=== PATIENT | female | born 1940 | race Caucasian/White ===

== ENCOUNTER 2016-05-06 10:46 | Day surgery (SDC) | payer MEDICARE ==
[~2016-05-06] VITALS: Ht 160 cm; Wt 80.0 kg
[~2016-05-06 10:46] MED LIST: LACTATED RINGERS 1,000 ML IV SCH; LEVOFLOXACIN 500 MG TAB (LEVAQUIN) PO SCH; SODIUM CHLORIDE FLUSH 3 ML SYR IV PRN
[2016-05-06 11:56] VITALS: BP 116/70
[2016-05-06] MEDS ORDERED: LEVOFLOXACIN 500 MG TAB (LEVAQUIN) PO SCH (12:00)
[2016-05-06] MEDS ORDERED: LIDOCAINE 2% (XYLOCAINE) 10 ML UROJECT MM ONE (12:46)
[2016-05-06 12:59] VITALS: BP 124/84
== END 2016-05-06 13:17 | disposition home or self-care (01) ==
LOC: ASC 10:46
PROVIDERS: ATTEND Urology
DX: Z08 Encounter for follow-up examination after completed treatment for malignant neoplasm (principal); Z85.51 Personal history of malignant neoplasm of bladder; Z85.42 Personal history of malignant neoplasm of other parts of uterus; E11.9 Type 2 diabetes mellitus without complications; Z79.82 Long term (current) use of aspirin; Z79.84 Long term (current) use of oral hypoglycemic drugs
CPT/HCPCS: 52000; 88112; A9270

== ENCOUNTER → 2016-05-22 | Outpatient (REF) | payer MEDICARE ==
[2016-05-22 12:45] LABS: BASOPHILS % (AUTO) 2 % (0-2); EOSINOPHILS # (AUTO) 0.2 10^3uL; EOSINOPHILS % (AUTO) 4 % (0-4); LYMPHOCYTES # (AUTO) 1.4 X10^3; MEAN PLATELET VOLUME 9.9 FL (6.0-9.5); MONOCYTES # (AUTO) 0.3 X10^3; MONOCYTES % (AUTO) 6 % (3-11); NEUTROPHILS # (AUTO) 3.4 X10^3; NEUTROPHILS % (AUTO) 62 % (51-67); PLATELET COUNT 438 10^3uL (150-450)
[2016-05-22 12:48] LABS: MEAN CORPUSCULAR HEMOGLOBIN 21.7 PG (26.0-34.0); MEAN CORPUSCULAR HGB CONC 27.8 g/dL (31.0-37.0); MEAN CORPUSCULAR VOLUME 78 FL (80-100)
== END ==
LOC: LAB 12:02
PROVIDERS: ATTEND Physician Assistant Medical
DX: D64.9 Anemia, unspecified (principal)
CPT/HCPCS: 85025

== ENCOUNTER → 2016-06-06 | Outpatient (REF) | payer MEDICARE ==
[2016-06-06 10:49] LABS: BASOPHILS % (AUTO) 3 % (0-2); EOSINOPHILS # (AUTO) 0.2 10^3uL; EOSINOPHILS % (AUTO) 4 % (0-4); LYMPHOCYTES # (AUTO) 1.1 X10^3; MEAN CORPUSCULAR VOLUME 84 FL (80-100); MEAN PLATELET VOLUME 9.4 FL (6.0-9.5); MONOCYTES # (AUTO) 0.4 X10^3; MONOCYTES % (AUTO) 7 % (3-11); NEUTROPHILS # (AUTO) 3.3 X10^3; NEUTROPHILS % (AUTO) 65 % (51-67); PLATELET COUNT 470 10^3uL (150-450); WHITE BLOOD COUNT 5.12 10^3uL (4.0-11.0)
[2016-06-06 11:11] LABS: MEAN CORPUSCULAR HEMOGLOBIN 24.3 PG (26.0-34.0); MEAN CORPUSCULAR HGB CONC 28.9 g/dL (31.0-37.0)
== END ==
LOC: LAB 10:39
PROVIDERS: ATTEND Physician Assistant Medical
DX: D64.9 Anemia, unspecified (principal)
CPT/HCPCS: 85025

== ENCOUNTER → 2016-06-11 | Emergency (ER) | payer MEDICARE ==
[~2016-06-11] VITALS: Ht 160 cm; Wt 80.0 kg
[2016-06-11 10:31] VITALS: BP 162/82
--- NOTE | 2016-06-11 11:05 | NUR ---
Patient was transferred from her wheelchair to ER cart with assist x2 without difficulty. Pt was position to her right side. Patient nows rates pain at 7/10.
[2016-06-11 11:46] LABS: BASOPHILS % (AUTO) 2 % (0-2); EOSINOPHILS # (AUTO) 0.2 10^3uL; EOSINOPHILS % (AUTO) 3 % (0-4); MEAN CORPUSCULAR VOLUME 84 FL (80-100); MEAN PLATELET VOLUME 9.3 FL (6.0-9.5); MONOCYTES # (AUTO) 0.4 X10^3; MONOCYTES % (AUTO) 7 % (3-11); NEUTROPHILS # (AUTO) 3.5 X10^3; NEUTROPHILS % (AUTO) 68 % (51-67); PLATELET COUNT 409 10^3uL (150-450); WHITE BLOOD COUNT 5.18 10^3uL (4.0-11.0)
--- NOTE | 2016-06-11 11:49 | NUR ---
Patient is resting Quitely with her eyes closed. Patient remains on her right side.
[2016-06-11 11:56] LABS: MEAN CORPUSCULAR HEMOGLOBIN 24.8 PG (26.0-34.0); MEAN CORPUSCULAR HGB CONC 29.5 g/dL (31.0-37.0)
[2016-06-11 12:11] LABS: ALBUMIN 3.9 g/dL (3.4-5.0); ALKALINE PHOSPHATASE 64 U/L (38-126); BUN/CREATININE RATIO 21 (10-20); TOTAL PROTEIN 6.7 g/dL (6.4-8.5)
--- NOTE | 2016-06-11 12:50 | NUR ---
Patioent repositioned back to right side after Radiology completed their visit. Head of bed is elevated to 305nper patient request. Spouse is present in the room.
--- NOTE | 2016-06-11 13:20 | NUR ---
Patient is discharged to home per physician orders. News medications were given by physician.
== END | disposition home or self-care (01) ==
LOC: ED 10:21
DX: M54.42 Lumbago with sciatica, left side (principal); M54.41 Lumbago with sciatica, right side; M54.16 Radiculopathy, lumbar region
CPT/HCPCS: 36415; 71010; 80053; 84484; 85025; 99282; 99283

== ENCOUNTER → 2016-08-06 | Emergency (ER) | payer MEDICARE ==
[~2016-08-06] VITALS: Ht 160 cm; Wt 81.0 kg
[~2016-08-06] MED LIST changes: +AC500T PO; +ACET1TAB PO; +ALEN70TA47 PO; +ALFENTANIL 500 MCG/ML (ALFENTA) 5 ML AMP IV ONE; +ASP81CT PO; +ASPI-586 PO; +ASPI-818 PO; +ASPI-860 PO; +CA C1TAB76 PO; +CHOL10002 PO; +CIPR-242 PO; +CITA40TA5 PO; +CPR500T; +CPR500T PO; +CYCL10TA45 PO; +DULO30CA PO; +DULO30CA46 PO; +FERR325T36 PO; +FNT25TD TD; +GBPN300C PO; +HCTZ12.5T PO; +HDR4T PO; +HYDR-3702 PO; +HYDR-3708 PO; +HYDR-3754 PO; +HYDR-3811 PO; +HYDR8TAB PO; +HYDROcodone/APAP 5 MG/325 MG (NORCO) TAB PO ONE; -LACTATED RINGERS 1,000 ML IV SCH; +LEVO250T11 PO; -LEVOFLOXACIN 500 MG TAB (LEVAQUIN) PO SCH; +LISI1TAB6 PO; +LSNP10T PO; +MAGN400O7 PO; +METF500T4 PO; +METF850T2 PO; +MICO30CR17 TOP; +MIDAZOLAM 2 MG/2 ML (VERSED) VIAL ONE; +MORP1CAP11 PO; +NF-LUBIP24 PO; +OMEP40CA36 PO; +ONDA-50 PO; +OXYC1TAB87 PO; +PANT40TA3 PO; +PHEN-640 PO; +POTA99TA3 PO; +PROPOFOL 20 ML IV ONE; +SMV10T PO; -SODIUM CHLORIDE FLUSH 3 ML SYR IV PRN; +SULF-228 PO; +TRM50T PO; +[UNRECOGNIZED DRUG - CODE] PO
[2016-08-06 13:29] VITALS: BP 130/51
--- NOTE | 2016-08-06 13:30 | NUR ---
Patient states she needs to urinate. Placed on bedpan, voids.
--- NOTE | 2016-08-06 14:09 | NUR ---
Patient up to bedside commode with permission from doctor.
[2016-08-06 14:33] LABS: BASOPHILS % (AUTO) 1 % (0-2); EOSINOPHILS # (AUTO) 0.3 10^3uL; EOSINOPHILS % (AUTO) 5 % (0-4); LYMPHOCYTES # (AUTO) 1.5 X10^3; MEAN CORPUSCULAR HEMOGLOBIN 29.4 PG (26.0-34.0); MEAN CORPUSCULAR VOLUME 94 FL (80-100); MONOCYTES # (AUTO) 0.5 X10^3; MONOCYTES % (AUTO) 8 % (3-11); NEUTROPHILS # (AUTO) 3.8 X10^3; NEUTROPHILS % (AUTO) 62 % (51-67); PLATELET COUNT 320 10^3uL (150-450); WHITE BLOOD COUNT 6.03 10^3uL (4.0-11.0)
--- NOTE | 2016-08-06 14:40 | NUR ---
Patient requests to use bedside commode. Voided only a few cc's.
[2016-08-06 14:46] LABS: ALKALINE PHOSPHATASE 67 U/L (38-126); ANION GAP 13.5 MEQ/L (3-15); BUN/CREATININE RATIO 25 (10-20); TOTAL PROTEIN 7.1 g/dL (6.4-8.5)
[2016-08-06 14:48] LABS: MEAN CORPUSCULAR HGB CONC 31.3 g/dL (31.0-37.0)
--- NOTE | 2016-08-06 14:50 | NUR ---
Complains of chest pain, left anterior 8/[address] Israel notified. Pain occurred directly following being placed back in bed. No changes on EKG.
--- NOTE | 2016-08-06 15:25 | NUR ---
Up to commode again. Dr. Israel notified of urinary frequency, UA order obtained.
[2016-08-06 15:33] LABS: BILIRUBIN,URINE Negative (Negative); COLOR,URINE Other; GLUCOSE, URINE (UA) Negative (Negative); LEUKOCYTE ESTERASE ,URINE Negative (Negative); UROBILINOGEN,URINE 0.2 mg/dL (0.2-1.0)
[2016-08-06 15:51] LABS: CLARITY,URINE Slightly Cloudy
[2016-08-06 15:52] LABS: RBC,URINE 0-2 /HPF; URINE CENTRIFUGED VOLUME 12 mL
== END ==
LOC: EDUNIT# 13:29 → ED 13:33
DX: R07.9 Chest pain, unspecified (principal); G89.29 Other chronic pain
CPT/HCPCS: 36415; 80053; 81003; 81015; 83880; 84484; 85025; 93005; 99285; A9270; 93010; 99284

== ENCOUNTER 2016-08-08 15:52 | Day surgery (SDC) | payer MEDICARE ==
[~2016-08-08] VITALS: Ht 157.5 cm; Wt 69.8 kg
[~2016-08-08 15:52] MED LIST changes: -ALFENTANIL 500 MCG/ML (ALFENTA) 5 ML AMP IV ONE; -ASPI-818 PO; -GBPN300C PO; -HYDROcodone/APAP 5 MG/325 MG (NORCO) TAB PO ONE; -MIDAZOLAM 2 MG/2 ML (VERSED) VIAL ONE; -OMEP40CA36 PO; -ONDA-50 PO; -PROPOFOL 20 ML IV ONE
--- OUTSIDE RECORDS SUMMARY | 2016-08-08 15:56 | XMS REPORT | Continuity of Care Document ---
Author Author [facility] Organization [facility] Address Unknown Phone Unavailable Care Team Providers Care Printer'S Assistant Name Role Phone PCP Unavailable Source Comments Some departments are not documenting in the electronic medical record. If you do not see the information that you expected, contact Release of Information in the Health Information Management department at [phone] for further assistance in locating additional records.[facility] Active Allergies and Adverse Reactions Not on File Current Medications Not on file Active Problems Not on file Most Recent Encounters Date Type Specialty Providers Description 06/11/2016 Telephone Orthopedic Surgery Bautista Gore MD Follow-up Phone Call Social History Tobacco Use Types Packs/Day Years Used Date Never Assessed Plan of Care Health Maintenance Due Date Last Done Comments Physical (Comprehensive) 1947 Exam Pertussis Vaccine 1952 Tetanus Vaccine 1958 Breast Cancer Screening 1981 Colorectal Cancer 08/25/1991 Screening Shingles Vaccine 2001 Osteoporosis Screening 2006 Prevnar/Pneumovax (#1) 2006 Influenza Vaccine 11/15/2016 Results from Last 3 Months Not on file
--- NOTE | 2016-08-08 16:00 | NUR ---
Admit to room 302 for prep for panendoscopy on 08-09-16. Came by w/c to floor. Difficulty transferring from chair to scale and from scale to bed. Rquires gait belt and 2-3 to 1 assist. Aid assisting patient with settling into bed. Patient c/o pain all over left side of body. States she has a bad rotator cuff.
[2016-08-08 16:21] VITALS: BP 144/80
--- NOTE | 2016-08-08 16:40 | NUR ---
While doing admission assessment, it was told to this creative writer that the patient last had pain medication of hydrocodone 10-325 at 1530. Patient had been complaining of severe pain and told me she had also taken aspirin. This was from her home medication which she had brought with her. said she took it at 1615. This was Gutierrez Back and Body with 500mg ASA and 32.5 mg Caffeine. Patient took [address] Pappas office notified of this and procedure is to proceed as scheduled. Phone orders for bowel prep have been received and noted. Patient medication sent to pharmacy.
[2016-08-08] MEDS ORDERED: POLYETHYLENE GLYCOL PO ONE (17:00)
[2016-08-08] MEDS ORDERED: DULO30CA PO (17:56)
[2016-08-08] MEDS ORDERED: ASPI-818 PO (17:56)
[2016-08-08] MEDS ORDERED: OMEP40CA36 PO (17:56)
[2016-08-08] MEDS ORDERED: ONDA-50 PO (17:56)
[2016-08-08] MEDS ORDERED: GBPN300C PO (17:56)
--- NOTE | 2016-08-08 18:05 | NUR ---
MED REC COMPLETED-current med list obtained from Ext Med History application, medication listing, prescription bottles, and retail pharmacy.
--- NOTE | 2016-08-08 19:00 | NUR ---
Report to night nurse. Patient has been up to commode x2 and transfers better than she did when she initially arrived to floor. Provided clear liquid supper. Bowel prep to begin at 0100 am. Patient voices understanding of plan of care for the night. has gone home for the evening.
[2016-08-08] MEDS ORDERED: NS FLUSH 3 ML PRN IV (19:45)
[2016-08-08] MEDS ORDERED: morphine INJ 2 MG/ML 1 ML SYRINGE IV PRN (19:45)
[2016-08-08] MEDS ORDERED: NS FLUSH 10 ML PRN IV (19:45)
[2016-08-08 20:00] VITALS: BP 126/81
[2016-08-08] MEDS: GABAPENTIN 300 MG (NEURONTIN) CAP PO SCH (21:29)
[2016-08-08] MEDS: HYDROcodone/APAP 5 MG/325 MG (NORCO) TAB PO PRN (21:29)
[2016-08-09] VITALS (7 sets, daily range): BP systolic 126–163; BP diastolic 78–91
[2016-08-09] MEDS ORDERED: BISACODYL 5 MG (DULCOLAX) TABLET PO SCH (01:00)
[2016-08-09] MEDS ORDERED: LACTATED RINGERS 1,000 ML IV SCH ×2 (05:00)
[2016-08-09] MEDS ORDERED: SODIUM CHLORIDE FLUSH 3 ML SYR IV PRN (05:00)
--- NOTE | 2016-08-09 05:00 | NUR ---
Bowel prep complete at this time. All 64oz of Propel finished. Patient is complaining of some general stomach upset following completion of bowel prep. will continue to monitor patient closely.
--- NOTE | 2016-08-09 06:13 | NUR ---
Patient complaining of pain rated at a 9/10 in bilateral legs r/t legs dangling while on commode. Patient requesting PRN pain medication. This RN administered PRN Morphine 2mg IV at this time. See eMAR. Will continue to monitor patient closely.
[2016-08-09] MEDS: GABAPENTIN 300 MG (NEURONTIN) CAP PO SCH ×2 (08:44→12:04)
[2016-08-09] MEDS: HYDROcodone/APAP 5 MG/325 MG (NORCO) TAB PO PRN (08:45)
[2016-08-09] MEDS ORDERED: NS FLUSH 3 ML DAILY IV SCH (09:00)
[2016-08-09] MEDS ORDERED: SIMETHICONE 40 MG/0.6 ML (MYLICON DROPS) ORAL SYRINGE ONE (10:58)
[2016-08-09] MEDS ORDERED: LIDOCAINE 4% TOPICAL 4.5 ML SYR ONE (10:58)
--- NOTE | 2016-08-09 11:33 | NUR ---
Patient to OR via bed.
[2016-08-09] MEDS ORDERED: LIDOCAINE 2% BOLUS 100 MG/5 ML (XYLOCAINE) SYRINGE ONE (12:06)
--- NOTE | 2016-08-09 14:46 | NUR ---
Patient meets criteria for discharge. Tolerating clear liquids and soft food by mouth. Denies pain or distress. Instructions provided with verbal and written understanding expressed. Dismissed via wheelchair to private car accompanied by ROUGH ROUNDER. All home medications returned. No further needs.
--- NOTE | 2016-08-09 14:46 | OPERATIVE REPORT ---
DATE OF OPERATION: 08/09/2016 PRE-OPERATIVE DIAGNOSIS: Anemia. POST-OPERATIVE DIAGNOSIS: 1. Antral ulcers. 2. Diffuse gastritis. 3. Reflux esophagitis. 4. Barnes diverticulosis. OPERATIVE PROCEDURE: 1. Esophagogastroduodenoscopy with biopsies. 2. Total colonoscopy. SURGEON: Roberto Pappas MD ANESTHESIA: Monitored anesthesia care. FINDINGS: 1. There were 2 small ulcers seen adjacent to each other along a fold in the gastric antrum. These were photographed an biopsied. There was no evidence of recent bleeding. 2. The duodenum appeared normal with no inflammation, ulcers, or neoplasia. 3. The proximal gastric mucosa appeared inflamed with focal erosions and erythema, and biopsies were taken. A large hiatal hernia was noted with a patchless diaphragmatic hiatus. 4. 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 Biopsies were obtained. 5. The bowel prep was fair. There was some liquid and particulate matter in dependent areas of the colon that had to be suctioned and irrigated in order to see. 6. There were diverticula seen throughout the distal colon and some seen proximally as well. 7. No neoplasia, angiodysplasia, or inflammation were seen in the colon or rectum. INDICATIONS: This patient is [id number] referred by Jose Miguel Erazo with a history of anemia and aspirin use that is somewhat excessive. She presents today for upper and lower endoscopy. DESCRIPTION OF PROCEDURE: The patient was informed of the risks and benefits and agreed to proceed. Her oropharynx was anesthetized with Xylocaine. A bite block was placed. The lighted endoscope was passed down the esophagus and into the stomach. Air was insufflated. As the antrum was visualized, these ulcers were seen along the lesser curvature and within the antrum. The pylorus was cannulated and the 1st, 2nd, and 3rd portions of the duodenum were visualized, this was normal. The scope was brought back into the stomach where the antrum was again inspected. These ulcers were biopsied and then biopsies were obtained for histology and pulled from the adjacent antrum. The body and fundus of the stomach showed these erosions as described and I did photograph some of these. Biopsies were obtained. Retroflexion revealed the cardia to appear similar, with the patchless diaphragmatic hiatus this was located at 36 cm in the squamocolumnar junction was about 4 cm proximal to that, with columnar migration as described. This was photographed and biopsied. This may represent short segment Thakkar's. The rest of the esophagus appeared unremarkable. Attention was then turned to the colonoscopy. A digital rectal exam was performed which was normal. The lighted endoscope was passed into the rectum and slowly advanced along the colon to the cecum. The ileocecal valve and the appendiceal orifice were easily seen. The scope was slowly brought back through the ascending, transverse, descending, and sigmoid colon. No polyps or neoplasia were seen. Diverticula were noted throughout, but more concentrated distally. The rectum appeared normal. The scope was removed completing the procedure. The patient tolerated the procedure without complications. I did prescribe Carafate 1 g p.o. q.i.d. for 4 weeks, and will have her avoid NSAIDS, and continue Omeprazole 40 mg daily.
== END 2016-08-09 14:46 | disposition home or self-care (01) ==
LOC: ASC 15:52 → MED/SURG 15:52 → ASC 08-09 14:46
PROVIDERS: ATTEND Surgery
DX: D64.9 Anemia, unspecified (principal); K21.0 Gastro-esophageal reflux disease with esophagitis; K29.30 Chronic superficial gastritis without bleeding; K57.30 Diverticulosis of large intestine without perforation or abscess without bleeding; K25.9 Gastric ulcer, unspecified as acute or chronic, without hemorrhage or perforation; K44.9 Diaphragmatic hernia without obstruction or gangrene; K22.70 Barrett's esophagus without dysplasia; E11.9 Type 2 diabetes mellitus without complications; Z79.82 Long term (current) use of aspirin; Z79.84 Long term (current) use of oral hypoglycemic drugs
CPT/HCPCS: 43239; 45378; 87077; 88305; 88312; A9270; J2270; J7120